=== PATIENT | female | born 1955 | race Caucasian/White ===

== ENCOUNTER 2017-10-17 23:39 | Emergency (ER) | payer SELFPAY ==
[2017-10-17 23:51] VITALS: O2SAT 99
--- NOTE | 2017-10-18 00:20 | C.PDOC ---
History Of Present Illness 61 year old female presents to the ED c/o left shoulder pain. Patient reports she was getting into the bus when she fell and landed on her left shoulder. Patient reports she went home and tried tasking hot showers to help with pain but did not help. Patient has PMHx of DVT but is not in any anticoagulants. Patient also has a hx of breast cancer and is not on any chemotherapy medications. Chief Complaint (Nursing): Upper Extremity Problem/Injury History Per: Patient History/Exam Limitations: no limitations Onset/Duration Of Symptoms: Days Current Symptoms Are (Timing): Still Present Quality: "Pain" Exacerbating Factor(s): Movement Recent travel outside of the [place]: No Additional History Per: Patient Past Medical History Reviewed: Historical Data, Nursing Documentation, Vital Signs Vital Signs: Last Vital Signs Temp 97.9 F 10/18/17 02:04 Pulse 103 H 10/18/17 02:04 Resp 18 10/18/17 02:04 BP 117/82 10/18/17 02:04 Pulse Ox 99 10/18/17 02:04 - Medical History PMH: Deep Vein Thrombosis Other PMH: Breast CA Surgical History: Cholecystectomy Family History: States: Unknown Family Hx - Social History Hx Alcohol Use: Yes Hx Substance Use: No - Immunization History Hx Tetanus Toxoid Vaccination: Yes Hx Influenza Vaccination: Yes Hx Pneumococcal Vaccination: Yes Review Of Systems Constitutional: Negative for: Fever, Chills Cardiovascular: Negative for: Chest Pain, Palpitations Respiratory: Negative for: Cough, Shortness of Breath Gastrointestinal: Negative for: Nausea, Vomiting Musculoskeletal: Positive for: Shoulder Pain, Arm Pain Skin: Negative for: Rash Physical Exam - Physical Exam Appears: Non-toxic, No Acute Distress Skin: Normal Color, Warm, Dry Head: Atraumatic, Normacephalic Eye(s): bilateral: Normal Inspection Oral Mucosa: Moist Neck: Normal ROM, No Midline Cervical Tenderness, Supple Chest: Symmetrical Cardiovascular: Rhythm Regular Respiratory: Normal Breath Sounds, No Rales, No Rhonchi, No Wheezing Gastrointestinal/Abdominal: Soft, No Tenderness, No Guarding, No Rebound Extremity: No Normal ROM (left shoulder ), Tenderness (left shoulder), Capillary Refill (< 2 seconds), Deformity (prominent over humeral head left shoulder), No Swelling Pulses: Left Radial: Normal, Right Radial: Normal Neurological/Psych: Oriented x3, Normal Speech Gait: Steady ED Course And Treatment O2 Sat by Pulse Oximetry: 99 (ON RA) Pulse Ox Interpretation: Normal - Other Rad Left shoulder X-Ray X-Ray: Interpreted by Me, Viewed By Me Interpretation: Left humeral head, surgical neck fracture Medical Decision Making Medical Decision Making: Impression: left shoulder pain Plan": * Tylenol 650 mg PO * Left shoulder X-RAy Disposition - Disposition Referrals: Funmi Vega MD [Staff Provider] - Disposition: HOME/ ROUTINE Disposition Time: 04:53 Condition: FAIR Prescriptions: oxyCODONE/Acetaminophen [Percocet 5/325 mg Tab] 1 ea PO QID PRN #15 tab PRN Reason: Pain, Mild (1-3) Instructions: Shoulder Fracture Forms: [employer] (Montenegrin) Print Language: YORUBA - Clinical Impression Clinical Impression: Humeral head fracture - Scribe Statement The provider has reviewed the documentation as recorded by the Scribe Erlin Orellana All medical record entries made by the Scribe were at my direction and personally dictated by me. I have reviewed the chart and agree that the record accurately reflects my personal performance of the history, physical exam, medical decision making, and the department course for this patient. I have also personally directed, reviewed, and agree with the discharge instructions and disposition.
[2017-10-18] MEDS ORDERED: Oxycodone/Acetaminophen 5/325 mg Tab PO STA (01:22)
[2017-10-18] MEDS ORDERED: Oxycodone/Acetaminophen 5/325 mg Tab ONE (01:38)
[2017-10-18 02:05] VITALS: BP 117/82; PULSE 103; RESP 18; TEMP 97.9
--- NOTE | 2017-10-18 16:09 | RAD ---
PROCEDURE: Radiographs of the Left Shoulder HISTORY: trauma COMPARISON: No prior. FINDINGS: BONES: There is a displaced prominent appearing fracture traversing left humeral head/neck with inferior subluxation of the humeral head with respect to the glenoid JOINTS: Normal. Glenohumeral and acromioclavicular joints preserved. No osteoarthritis. SOFT TISSUES: Normal. OTHER FINDINGS: None. IMPRESSION: There is a displaced prominent appearing fracture traversing left humeral head/neck with inferior subluxation of the humeral head with respect to the glenoid
== END 2017-10-18 02:06 | disposition home or self-care (01) ==
LOC: C.ER 23:39
DX: S42.292A Other displaced fracture of upper end of left humerus, initial encounter for closed fracture (principal); V78.4XXA Person boarding or alighting from bus injured in noncollision transport accident, initial encounter